=== PATIENT | female | born 1960 | race Caucasian/White ===

== ENCOUNTER 2016-10-27 21:16 | Emergency (ER) | payer MEDICAID ==
[2016-10-27 22:55] LABS: BASOPHILS 0.3 % (0-2); EOSINOPHILS 0.6 % (0-7); HEMATOCRIT 50.1 % (36.0-48.0); HEMOGLOBIN 17.2 g/dL (12-16); IMMATURE GRANULOCYTES 0.4 % (0-5); LYMPHOCYTES 7.2 % (15-50); MCH 29.7 pg (26.0-34.0); MCHC 34.3 g/dL (31.0-37.0); MCV 86.4 fL (80.0-100.0); MEAN PLATELET VOLUME 10.5 fL (7.4-10.4); MONOCYTES 5.3 % (2-11); NEUTROPHILS 86.2 % (40-80); PLATELET COUNT 234 10x3/uL (130-400); RDW 12.5 % (11.5-14.5); WBC 10.6 10x3/uL (4.8-10.8)
[2016-10-28 00:17] LABS: ALBUMIN 3.8 g/dL (3.4-5.0); ALKALINE PHOSPHATASE 85 U/L (46-116); ALT (SGPT) 61 U/L (10-68); BILIRUBIN - TOTAL 0.88 mg/dL (0.2-1.3); CALC OSMOLALITY 270 mosm/kg (275-300); CALCIUM 9.4 mg/dL (8.5-10.1); CARBON DIOXIDE 29.2 mmol/L (21.0-32.0); CHLORIDE - SERUM 100 mmol/L (98-107); CREATININE - SERUM 0.9 mg/dL (0.6-1.3); GLUCOSE 120 mg/dL (74-106); POTASSIUM - SERUM 5.4 mmol/L (3.5-5.1); PROTEIN - SERUM 7.8 g/dL (6.4-8.2); SODIUM 135 mmol/L (136-145); UREA NITROGEN 13 mg/dL (7-18); eGFR NON AFRICAN AMERICAN 69 mL/min (90-120)
[2016-10-28 00:30] LABS: CKMB 0.7 U/L (0.0-3.6); CREATINE KINASE 51 UL (21-215)
[2016-10-28 00:34] LABS: TROPONIN-I < 0.017 ng/mL (0.000-0.060)
== END 2016-10-28 01:33 | disposition home or self-care (01) ==
LOC: D.ER 21:16
PROVIDERS: Family Medicine
DX: I10 Essential (primary) hypertension (principal); J01.90 Acute sinusitis, unspecified; Z91.14 Patient's other noncompliance with medication regimen; F17.200 Nicotine dependence, unspecified, uncomplicated; R51 Headache

== ENCOUNTER 2017-11-02 21:12 | Emergency (ER) | payer MEDICAID ==
[~2017-11-02] VITALS: Ht 160 cm; Wt 90.9 kg
[2017-11-02 21:17] VITALS: Ht 160 cm; Wt 90.9 kg
[2017-11-02] MEDS ORDERED: VERAPAMIL HCL40 MG (21:18)
[2017-11-02] MEDS ORDERED: OMEPRAZOLE20 M1 PO (21:19)
[2017-11-02] MEDS ORDERED: CELEXA20 MG PO (21:19)
[2017-11-02] MEDS ORDERED: AMITRIPTYLINE H50 MG PO (21:19)
[2017-11-02] MEDS ORDERED: TRIGLIDE160 MG (21:19)
[2017-11-02] MEDS ORDERED: ZANAFLEX4 MG (21:20)
[2017-11-02] MEDS ORDERED: HYDROCHLOROTH12.5 M1 (21:20)
[2017-11-02] MEDS ORDERED: AMOXICILLIN500 M1 PO (22:22)
[2017-11-02] MEDS ORDERED: VOLTAREN75 MG PO (22:22)
[2017-11-02 23:10] VITALS: BP 184/108
== END 2017-11-02 23:10 | disposition home or self-care (01) ==
LOC: D.ER 21:12
DX: K04.7 Periapical abscess without sinus (principal); K08.89 Other specified disorders of teeth and supporting structures; I10 Essential (primary) hypertension

== ENCOUNTER 2017-12-05 12:39 | Emergency (ER) | payer MEDICAID ==
[~2017-12-05] VITALS: Ht 160 cm; Wt 101.8 kg
[~2017-12-05 12:39] MED LIST: AMITRIPTYLINE H50 MG PO; AMOXICILLIN500 M1 PO; CELEXA20 MG PO; HYDROCHLOROTH12.5 M1; OMEPRAZOLE20 M1 PO; TRIGLIDE160 MG; VERAPAMIL HCL40 MG; VOLTAREN75 MG PO; ZANAFLEX4 MG
[2017-12-05 13:23] VITALS: Ht 160 cm; Wt 101.8 kg
[2017-12-05 14:50] LABS: BASOPHILS 0.2 % (0-2); EOSINOPHILS 0.2 % (0-7); HEMOGLOBIN 13.5 g/dL (12-16); IMMATURE GRANULOCYTES 0.6 % (0-5); LYMPHOCYTES 10.9 % (15-50); MCH 28.9 pg (26.0-34.0); MCHC 33.8 g/dL (31.0-37.0); MCV 85.7 fL (80.0-100.0); MEAN PLATELET VOLUME 9.9 fL (7.4-10.4); MONOCYTES 8.6 % (2-11); NEUTROPHILS 79.5 % (40-80); RBC 4.67 10x6/uL (4.00-5.40); RDW 12.8 % (11.5-14.5); WBC 12.5 10x3/uL (4.8-10.8)
[2017-12-05 14:52] LABS: PLATELET COUNT 327 10x3/uL (130-400)
[2017-12-05 15:21] LABS: ALKALINE PHOSPHATASE 70 U/L (46-116); ALT (SGPT) 32 U/L (10-68); BILIRUBIN - TOTAL 0.26 mg/dL (0.2-1.3); CALC OSMOLALITY 275 mosm/kg (275-300); CALCIUM 9.3 mg/dL (8.5-10.1); CHLORIDE - SERUM 102 mmol/L (98-107); CREATININE - SERUM 1.1 mg/dL (0.6-1.3); GLUCOSE 129 mg/dL (74-106); POTASSIUM - SERUM 3.7 mmol/L (3.5-5.1); PROTEIN - SERUM 7.8 g/dL (6.4-8.2); SODIUM 137 mmol/L (136-145); UREA NITROGEN 12 mg/dL (7-18); eGFR NON AFRICAN AMERICAN 54 mL/min (90-120)
[2017-12-05 15:22] LABS: PRO BNP 117 pg/mL (0-125)
[2017-12-05 15:26] LABS: TROPONIN-I < 0.017 ng/mL (0.000-0.060)
[2017-12-05] MEDS ORDERED: ZESTRIL20 MG PO (17:36)
[2017-12-05 18:04] VITALS: BP 182/109
== END 2017-12-05 18:05 | disposition home or self-care (01) ==
LOC: D.ER 12:39
PROVIDERS: Emergency Medicine
DX: R06.00 Dyspnea, unspecified (principal); I10 Essential (primary) hypertension; G40.909 Epilepsy, unspecified, not intractable, without status epilepticus; K21.9 Gastro-esophageal reflux disease without esophagitis

== ENCOUNTER 2018-01-14 20:55 | Inpatient (IN) | payer MEDICARE ==
[~2018-01-14] VITALS: Ht 160 cm; Wt 99.8 kg
--- NOTE | ~2018-01-14 | HEMODYNAMI ---
PATIENT:ISMAEL HUDSON MEDICAL RECORD: [id number] : 60 LOCATION:[facility] [address] [facility]# [id number] ADMISSION DATE: 01/15/18 Generatedon:01/15/201811:26 Patient name: ISMAEL HUDSON Patient #: [id number] SSN: [id number] : 1960 Date of study: 01/15/2018 Page: Of Hemodynamic Procedure Report Patient Data Patient Demographics Procedure consent was obtained First Name: ISMAEL Gender: Female Last Name: TRISTAN : 1960 [facility] Initial: R Age: 57 year(s) Patient #: [id number] Race: SSN: [id number] Additional ID: [id number] Contact details Address: [address] [place] [address] State: [place] City: [place] Zip code: [address] Admission Admission Data Admission Date: 01/15/2018 Admission Time: 0:30 Room #: 2115 Lab Results Lab Result Date: 01/15/2018 Lab Result Time: 0:00 Biochemistry Name Units Result Min Max BUN mg/dl 13 --(--*-)-- 7 18 Creatinine mg/dl 1 --(--*-)-- 0.6 1.3 CBC Name Units Result Min Max Hemoglobin g/dl 12.6 -*(----)-- 13.5 17.5 Procedure Procedure Types Cath Procedure Diagnostic Procedure LHC LHC w/Coronaries Sedation Charges Moderate Sedation up to 30 minutes PCI Procedure Coronary Stent Coronary Stent Initial Procedure Description Procedure Date Procedure Date: 01/15/2018 Procedure Start Time: 11:01 Procedure End Time: 11:21 Procedure Staff Name Function Raul Barkley MD Performing Physician Daisy Lindquist RT Monitor Eloina Mittal RT Scrub Braxton Thomas RN Nurse Basim De Jesus RT Chief Service Dispatcher Procedure Data Cath Procedure Fluoroscopy Diagnostic fluoroscopy Total fluoroscopy Time: 5.6 time: 5.6 min min Diagnostic fluoroscopy Total fluoroscopy dose: 302 dose: 302 mGy mGy Contrast Material Contrast Material Type Amount (ml) Isovue 300 103 Entry Location Entry Primary Successful Side Size Upsize Upsize Entry Closure Junior ccessful Closure Location (Fr) 1 (Fr) 2 (Fr) Remarks Device Remarks Radial Right 6 Fr Mechanical TR artery Short Compression Estimated blood loss: 10 ml Diagnostic catheters Device Type Used For End Catheter Placement DIAGNOSTIC [place] 110cm 5 Procedure Fr catheter ([id number]) Procedure Complications No complications Procedure Medications Medication Administration Route Dosage 0.9% NaCl I.V. 100 ml/hr Oxygen etCO2 Nasal cannula 2 l/min Heparin Flush Bag added to field 2 bags (1000units/500ml NS) Lidocaine 2% added to field 20 Radial Cocktail added to field 1 syringe (Verapomil 2mg/Nitro 400mcg/Heparin 1500units) Versed I.V. 2 mg Fentanyl I.V. 100 mcg Radial Cocktail I.A. 1 syringe (Verapomil 2mg/Nitro 400mcg/Heparin 1500units) Heparin Bolus I.V. 96618 units Fentanyl I.V. 50 mcg Plavix P.O. 600 mg Hemodynamics Rest HGB: 12.6 (g/dl) Heart Rate: 66 (bpm) Pressure Samples Time Site Value (mmHg) Purpose Heart Use Rate(bpm) 11:05 LV 136/11,24 Snapshot 84 11:06 AO 124/87(101) Pullback 81 11:06 LV 134/10,21 Pullback 81 Gradients Valve Time Site 1 Site 2 Mean SEP/DFP Peak To Heart Use (mmHg) (sec/min) Peak Rate (mmHg) (bpm) Aortic 11:06 LV AO 15 7 10 81 134/10,21 124/87(101) Calculations Valve P-P Mean Valve Index Valve Source Name Gradient Area Flow (cm2) Aortic 10 15 10 15 Snapshots Pre Cath Intra NCS Post Cath Vital Signs Time Heart Resp SPO2 etCO2 NIBP (mmHg) Rhythm Pain Sedation Rate (ipm) (%) (mmHg) Status Level (bpm) 10:33:25 65 43 0 136/125(132) NSR 0 (11) 10(A) , No pain 10:37:35 66 14 95 10.5 134/98(121) NSR 0 (11) 10(A) , No pain 10:41:43 67 17 91 21.8 112/91(103) NSR 0 (11) 10(A) , No pain 10:45:51 68 17 92 16.5 123/82(102) NSR 0 (11) 10(A) , No pain 10:50:01 68 16 92 12.8 116/86(98) NSR 0 (11) 10(A) , No pain 10:54:07 68 14 95 9 126/85(101) NSR 0 (11) 10(A) , No pain 10:58:21 74 14 91 122/83(112) NSR 0 (11) 10(A) , No pain 11:02:29 71 14 92 104/69(101) NSR 0 (11) 10(A) , No pain 11:06:38 81 17 96 20.3 117/68(104) NSR 0 (11) 10(A) , No pain 11:10:50 78 12 93 17.3 113/77(102) NSR 0 (11) 10(A) , No pain 11:15:02 74 14 95 20.3 112/75(97) NSR 0 (11) 10(A) , No pain 11:19:10 75 16 93 21.8 102/80(99) NSR 0 (11) 10(A) , No pain Medications Time Medication Route Dose Verified Delivered Reason Not es Effectiveness by by 10:42:39 0.9% NaCl I.V. 100 Braxton Braxton Per physician ml/hr Martha Thomas RN RN 10:42:51 Oxygen etCO2 2 l/min Braxton Braxton Per physician Nasal Martha Thomas cannula RN RN 10:43:02 Heparin Flush added 2 bags Braxton Braxton used for Bag to Lorigan Lorigan procedure (1000units/500ml field LEE RN NS) 10:43:29 Lidocaine 2% added 20ml Braxton Braxton for local to vial Lorigan Lorigan anesthetic field LEE RN 10:43:49 Radial Cocktail added 1 Braxton Braxton used for (Verapomil to syringe Lorigan Lorigan procedure 2mg/Nitro field LEE RN 400mcg/Heparin 1500units) 10:46:54 Versed I.V. 2 mg Braxton Braxton for sedation Martha Thomas RN RN 10:47:03 Fentanyl I.V. 100 mcg Braxton Braxton for sedation Lorigan Lorigan RN RN 11:03:23 Radial Cocktail I.A. 1 Braxton Raul for (Verapomil syringe Martha Barkley MD vasodilation 2mg/Nitro RN 400mcg/Heparin 1500units) 11:13:24 Heparin Bolus I.V. 10,000 Braxton Braxton for units Martha Thomas anticoagulation RN RN 11:23:52 Fentanyl I.V. 50 mcg Braxton Braxton for sedation Martha Thomas RN RN 11:24:04 Plavix P.O. 600 mg Braxton Braxton for Martha Thomas antiplatelet RN RN therapy Procedure Log Time Note 10:18:26 Basim De Jesus RT(R) sent for patient. Start room use. 10:18:27 Time tracking: Regular hours (M-F 7:00 - 5:00) 10:18:32 Plan of Care:Hemodynamics will remain stable., Cardiac rhythm will remain stable., Comfort level will be maintained., Respiratory function will remain adequate., Patient/ family verbilizes understanding of procedure., Procedure tolerated without complication., Recovers from procedure without complications.. 10:19:17 Lab Result : Hemoglobin 12.6 g/dl 10:19:17 Lab Result : Creatinine 1 mg/dl 10:19:17 Lab Result : BUN 13 mg/dl 10:20:07 Informed consent obtained and on chart 10:26:53 Patient received from Med II to CCL 3 Alert and oriented. Tansferred to table in Supine position. 10:26:55 Warm blankets applied, and cici hugger turned on for patient comfort. 10:26:55 Correct patient and procedure confirmed by team. 10:26:56 ECG and BP/O2 sat monitors applied to patient. 10:32:18 Baseline sample Acquired. 10:32:18 Vital chart was started 10:32:22 Rhythm: sinus rhythm 10:32:24 Full Disclosure recording started 10:32:31 H&P Date Dictated: 01/15/2018 New H&P dictated by physician.. 10:32:32 Pre-procedure instructions explained to patient. 10:32:33 Pre-op teaching completed and patient verbalized understanding. 10:32:34 Family in waiting room. 10:32:35 Patient NPO since Midnight. 10:32:37 Is the patient allergic to Iodine/contrast media? No. 10:32:38 Was the patient premedicated? No 10:32:39 Is patient on blood thinner?No 10:32:40 Patient diabetic? No. 10:32:43 Previous problem with sedation/anesthesia? No ? 10:32:47 Snore? Yes 10:32:48 Sleep apnea? No 10:32:49 Deviated septum? No 10:32:50 Opens mouth fully? Yes 10:32:51 Sticks out tongue? Yes 10:32:53 Airway obstruction? No ? 10:32:55 Dentures? No ? 10:32:58 Pre procedure: right dorsailis pedis pulse 1+ Palpable, but thready & weak; easily obliterated 10:33:01 Pre procedure: left dorsailis pedis pulse 1+ Palpable, but thready & weak; easily obliterated 10:33:03 Patient pain scale 0/10 ?. 10:33:08 IV patent on arrival in left forearm with 0.9% NaCl at [facility]. 10:33:11 Lab results completed and on chart. 10:33:14 Right Radial & Right Groin area was prepped with chlora-prep and draped in sterile fashion 10:33:15 Alarms reviewed by R. N. 10:33:16 Sharps counted by scrub and verified by R.N. 10:42:39 0.9% NaCl 100 ml/hr I.V. was administered by Braxton Thomas RN; Per physician; 10:42:51 Oxygen 2 l/min etCO2 Nasal cannula was administered by Braxton Thomas RN; Per physician; 10:43:02 Heparin Flush Bag (1000units/500ml NS) 2 bags added to field was administered by Braxton Thomas RN; used for procedure; 10:43:29 Lidocaine 2% 20ml vial added to field was administered by Braxton Thomas RN; for local anesthetic; 10:43:49 Radial Cocktail (Verapomil 2mg/Nitro 400mcg/Heparin 1500units) 1 syringe added to field was administered by Braxton Thomas RN; used for procedure; 10:46:22 Physician arrived 10:46:26 --------ALL STOP TIME OUT------ 10:46:27 Final Timeout: patient, procedure, and site verified with staff and physician. All members of the team are in agreement. 10:46:33 Right Radial & Right Groin site verified by team. 10:46:37 Physical assessment completed. ASA score P 2 - A patient with mild systemic disease as per Raul Barkley MD. 10:46:45 Sedation plan: IV Moderate Sedation Medication:Versed, Fentanyl 10:46:54 Versed 2 mg I.V. was administered by Braxton Thomas RN; for sedation; 10:47:03 Fentanyl 100 mcg I.V. was administered by Braxton Thomas RN; for sedation; 10:47:38 Use device set Radial Dx or PCI 10:47:39 ACIST Syringe (20721) opened to sterile field. 10:47:40 Medline Cath Pack ([id number]) opened to sterile field. 10:47:40 Bag Decanter (2002S) opened to sterile field. 10:47:41 DIAGNOSTIC WIRE .035 260cm J wire (393082) opened to sterile field. 10:47:41 ACIST Hand Control (43992) opened to sterile field. 10:47:42 ACIST Manifold (26034) opened to sterile field. 10:47:42 Tegaderm 4 x 4 (1626W) opened to sterile field. 10:47:44 MBrace Wrist Support (184936209) opened to sterile field. 10:47:45 NEEDLE Cook 21G 4cm Radial (T67576) opened to sterile field. 10:47:49 SHEATH 6Fr Prelude Radial ([id number]) opened to sterile field. 10:59:40 Procedure started. 11:01:27 Local anesthetic to right radial artery with Lidocaine 2% by Raul Barkley MD.INITIAL ACCESS ONLY 11:01:39 A 6 Fr Short sheath was inserted into the Right Radial artery 11:03:23 Radial Cocktail (Verapomil 2mg/Nitro 400mcg/Heparin 1500units) 1 syringe I.A. was administered by Raul Barkley MD; for vasodilation; 11:04:31 A DIAGNOSTIC [place] 110cm 5 Fr catheter (786562) was advanced over the wire and used for Procedure. 11:05:26 LV angiography performed. 11:06:01 EF : 60 % 11:06:50 LCA angiography performed. 11:07:53 RCA angiography performed. 11:09:42 Catheter removed. 11:12:46 Proceeding to intervention. 11:13:02 6 Fr XBLAD 3.5 guide catheter was inserted over the wire 11:13:24 Heparin Bolus 10,000 units I.V. was administered by Braxton Thomas RN; for anticoagulation; 11:14:12 BMW wire advanced. 11:14:22 GUIDE 6FR XBLAD 3.5 catheter (99759468) opened to sterile field. 11:14:23 BMW 300cm Reader 2 J wire (3291842F) opened to sterile field. 11:14:24 INFLATOR Merit BasixCompak (IL6450) opened to sterile field. 11:14:25 TUBING High Pressure Extension Tubing (Filippo) (PO3651B) opened to sterile field. 11:16:51 Wire advanced across lesion. 11:19:07 Place stent Inflation Number: 1 A INTEGRITY OTW 3.0 X 22 stent ([id number]) was prepped and advanced across the Mid LAD. The stent was deployed at 12 DARCI for 0:10 (min:sec). 11:19:27 TR BAND Standard ([id number]) opened to sterile field. 11:19:43 Sheath removed intact; hemostasis achieved with Mechanical Compression to the Right Radial artery. 11:19:55 Procedure ended.(Physican Out) 11:20:15 Fluoroscopy time 05.60 minutes. 11:20:22 Fluoroscopy dose: 302 mGy 11:20:22 Flurop Dose total: 302 11:20:26 Contrast amount:Isovue 300 103ml. 11:20:28 Sharps counted by scrub and verified by R.N. 11:20:31 TR band inflated with 11cc of air. 11:20:33 Insertion/operative site no bleeding no hematoma. 11:20:35 Post Procedure Pulses reassessed and unchanged 11:20:39 Post-procedure physical assessment completed. ASA score P 2 - A patient with mild systemic disease as per Raul Barkley MD. 11:20:42 Post procedure rhythm: unchanged. 11:20:45 Estimated blood loss: 10 ml 11:20:47 Post procedure instruction explained to patient.Patient verbalizes understanding. 11:21:02 Procedure type changed to Cath procedure, Diagnostic procedure, LHC, LHC w/Coronaries, Sedation Charges, Moderate Sedation up to 30 minutes, PCI procedure, Coronary Stent, Coronary Stent Initial 11:21:04 Procedure and supply charges have been captured, reviewed, submitted and are correct. 11:21:38 Procedure Complication : No complications 11:21:41 Vital chart was stopped 11:21:41 See physician's report for complete and final results. 11:21:44 Report given to [facility]. 11:21:47 Patient transfered to [facility] with Bed. 11:21:49 Procedure ended. 11:21:49 Full Disclosure recording stopped 11:21:53 End room use (Document Last) 11:22:04 ACC-PCI Only Patient was given prescriptions, or instructed by Raul Barkley MD to start/continue the following medications upon discharge: Plavix 11:23:52 Fentanyl 50 mcg I.V. was administered by Braxton Thomas RN; for sedation; 11:24:04 Plavix 600 mg P.O. was administered by Braxton Thomas RN; for antiplatelet therapy; Intervention Summary Intervention Notes Time ActionType Lesion and Equipment Action# Pressure Duration Attributes Used 11:19:07 Place stent Mid LAD INTEGRITY 1 12 00:10 OTW 3.0 X 22 stent ([id number]) Device Usage Item Name Manufacture Quantity Catalog Number Hospital Part Current M inimal Lot# / Charge Number Stock Stock Serial# Code ACIST Syringe Acist 1 30416 367279 742029 496973 2 0 (50710) Medical Systems Inc Medline Cath Cardinal 1 [id number] 356555 72686 877720 5 Pack Health ([id number]) Bag Decanter Microtek 1 2001S 656504 38524 904728 5 (2001S) Medical Inc. DIAGNOSTIC WIRE St [place] 1 463407 381938 536183 327889 3 0 .035 260cm J wire (296878) ACIST Hand Acist 1 31700 998901 444438 608436 5 Control (29389) Medical [employer] Inc ACIST Manifold Acist 1 41302 239292 969073 793121 5 (80890) Medical Systems Inc Tegaderm 4 x 4 3M 1 1626W 442519 672678 093065 5 (1626W) MBrace Wrist Advanced 1 140-0250-00 383611 53907 310330 5 Support Vascular ([id number]) Dynamics NEEDLE Cook 21G Cook Medical 1 V66966 404133 143933 588660 5 4cm Radial (K31372) SHEATH 6Fr Merit 1 [id number] 410910 107581 007578 5 Prelude Radial Medical ([id number]) DIAGNOSTIC Terumo 1 57-5571 725453 831989 470966 5 [place] 110cm 5 Fr catheter (593409) GUIDE 6FR XBLAD Cardinal 1 [id number] 140431 903745 293451 1 0 3.5 catheter Health (45210091) BMW 300cm Hickman 1 [id number] 092311 570243 270965 5 Reader 2 J Vascular wire (1188539O) INFLATOR Merit Merit 1 SB2262 398486 243086 832843 1 5 [employer] Medical (BG8433) TUBING High Merit 1 [id number] 260659 57278 353825 1 0 Pressure Medical Extension Tubing (Barkley) (EK8426P) INTEGRITY OTW Medtronic 1 [id number] 455496 132734 5 [id number] 3.0 X 22 stent ([id number]) TR BAND Terumo 1 [id number] 253098 342285 225700 4 0 Standard ([id number]) Signature Audit [place] Stage Time Signature Unsigned Intra-Procedure 01/15/2018 Daisy Lindquist 11:26:54 AM RT(R) Signatures Monitor : Daisy Lindquist Signature : RT Date : Time : [place] [id number] [facility] [place] [address]
[~2018-01-14 20:55] MED LIST changes: +CALAN SR120 MG PO; -HYDROCHLOROTH12.5 M1; +HYDROCHLOROTH12.5 M1 PO; -TRIGLIDE160 MG; +TRIGLIDE160 MG PO; -VERAPAMIL HCL40 MG; +ZESTRIL20 MG PO
[2018-01-14 21:41] LABS: BASOPHILS 0.8 % (0-2); EOSINOPHILS 4.9 % (0-7); HEMATOCRIT 40.1 % (36.0-48.0); HEMOGLOBIN 13.5 g/dL (12-16); IMMATURE GRANULOCYTES 0.6 % (0-5); LYMPHOCYTES 27.9 % (15-50); MCHC 33.7 g/dL (31.0-37.0); MCV 86.1 fL (80.0-100.0); MEAN PLATELET VOLUME 9.4 fL (7.4-10.4); NEUTROPHILS 59.8 % (40-80); PLATELET COUNT 306 10x3/uL (130-400); RBC 4.66 10x6/uL (4.00-5.40); RDW 12.3 % (11.5-14.5); WBC 5.3 10x3/uL (4.8-10.8)
[2018-01-14 21:55] LABS: APTT 27.4 SECONDS (22.8-39.4); INR 0.96 (0.85-1.17); PROTIME 12.4 SECONDS (11.6-15.0)
[2018-01-14 21:56] LABS: D-DIMER-QUANTITATIVE 0.48 ug/mLFEU (0.20-0.54)
[2018-01-14 22:03] LABS: ALBUMIN 3.7 g/dL (3.4-5.0); ALKALINE PHOSPHATASE 58 U/L (46-116); ALT (SGPT) 44 U/L (10-68); BILIRUBIN - TOTAL 0.22 mg/dL (0.2-1.3); CALC OSMOLALITY 277 mosm/kg (275-300); CALCIUM 9.6 mg/dL (8.5-10.1); CARBON DIOXIDE 27.2 mmol/L (21.0-32.0); CHLORIDE - SERUM 104 mmol/L (98-107); CREATININE - SERUM 1.2 mg/dL (0.6-1.3); GLUCOSE 109 mg/dL (74-106); POTASSIUM - SERUM 4.4 mmol/L (3.5-5.1); PROTEIN - SERUM 7.8 g/dL (6.4-8.2); SODIUM 139 mmol/L (136-145); UREA NITROGEN 11 mg/dL (7-18); eGFR NON AFRICAN AMERICAN 49 mL/min (90-120)
[2018-01-14 22:20] LABS: CREATINE KINASE 140 UL (21-215)
[2018-01-14 22:29] LABS: TROPONIN-I 1.762 ng/mL (0.000-0.060)
[2018-01-14 23:00] VITALS: BP 178/103
[2018-01-14 23:30] VITALS: BP 171/97
[2018-01-15] VITALS: BP 158/101
[2018-01-15 00:30] VITALS: BP 178/100
[2018-01-15] MEDS ORDERED: ULTRAM50 MG PO (01:48)
[2018-01-15] MEDS ORDERED: AUGMENTIN 875-11 TAB PO (01:51)
[2018-01-15 02:10] VITALS: BP 158/101; BMI 39.0
[2018-01-15 04:00] VITALS: BP 169/89
[2018-01-15 04:50] LABS: CKMB 7.1 U/L (0.0-3.6); CREATINE KINASE 127 UL (21-215)
[2018-01-15 04:56] LABS: TROPONIN-I 1.515 ng/mL (0.000-0.060)
[2018-01-15 08:11] LABS: BASOPHILS 0.6 % (0-2); EOSINOPHILS 4.3 % (0-7); HEMATOCRIT 38.1 % (36.0-48.0); HEMOGLOBIN 12.6 g/dL (12-16); IMMATURE GRANULOCYTES 0.4 % (0-5); LYMPHOCYTES 30.2 % (15-50); MCH 28.4 pg (26.0-34.0); MCHC 33.1 g/dL (31.0-37.0); MONOCYTES 7.8 % (2-11); NEUTROPHILS 56.7 % (40-80); PLATELET COUNT 319 10x3/uL (130-400); RBC 4.43 10x6/uL (4.00-5.40); RDW 12.4 % (11.5-14.5); WBC 5.4 10x3/uL (4.8-10.8)
[2018-01-15 08:14] LABS: ANION GAP 17.3 mmol/L (8-16); CALCIUM 9.3 mg/dL (8.5-10.1); CARBON DIOXIDE 22.1 mmol/L (21.0-32.0); POTASSIUM - SERUM 3.4 mmol/L (3.5-5.1)
[2018-01-15 09:17] VITALS: BP 131/85
[2018-01-15 10:56] LABS: CKMB 5.3 U/L (0.0-3.6); CREATINE KINASE 114 UL (21-215); TROPONIN-I 0.725 ng/mL (0.000-0.060)
[2018-01-15 13:11] VITALS: Ht 160 cm; Wt 99.8 kg
[2018-01-15] MEDS ORDERED: PLAVIX75 MG PO (15:57)
== END 2018-01-15 17:10 | disposition home or self-care (01) | DRG 249 ==
LOC: D.ER 20:55 → D.M2 01-15 00:30
PROVIDERS: Family Medicine; Internal Medicine Cardiovascular Disease
PROC: B2111ZZ Fluoroscopy of Multiple Coronary Arteries using Low Osmolar Contrast (ICD-10-PCS; 2018-01-15)
PROC: B2151ZZ Fluoroscopy of Left Heart using Low Osmolar Contrast (ICD-10-PCS; 2018-01-15)
PROC: 02703DZ Dilation of Coronary Artery, One Artery with Intraluminal Device, Percutaneous Approach (ICD-10-PCS; principal; 2018-01-15 11:30)
PROC: 4A023N7 Measurement of Cardiac Sampling and Pressure, Left Heart, Percutaneous Approach (ICD-10-PCS; 2018-01-15 11:30)
DX: I21.4 Non-ST elevation (NSTEMI) myocardial infarction (principal); I25.10 Atherosclerotic heart disease of native coronary artery without angina pectoris; I10 Essential (primary) hypertension; G62.9 Polyneuropathy, unspecified

== ENCOUNTER → 2018-05-19 18:11 | Outpatient (CLI) | payer MEDICARE ==
[2018-01-15 13:11] VITALS: BMI 38.9
[~2018-05-19 18:11] MED LIST changes: +AUGMENTIN 875-11 TAB PO; +PLAVIX75 MG PO; +ULTRAM50 MG PO
[2018-05-19 18:40] LABS: CHOL - HDL RATIO 2.8 ratio (2.3-4.1); LDL-HDL RATIO 1.4 ratio (1.5-3.5)
== END | disposition home or self-care (01) ==
LOC: D.LABREF 18:11
PROVIDERS: Nurse Practitioner Adult Health
DX: E78.5 Hyperlipidemia, unspecified (principal)

== ENCOUNTER 2018-12-23 06:15 | Day surgery (SDC) | payer MEDICARE ==
[2018-12-22 11:33] LABS: BASOPHILS 0.6 % (0-2); EOSINOPHILS 7.2 % (0-7); HEMATOCRIT 40.1 % (36.0-48.0); HEMOGLOBIN 13.5 g/dL (12-16); IMMATURE GRANULOCYTES 0.2 % (0-5); LYMPHOCYTES 24.4 % (15-50); MCH 28.5 pg (26.0-34.0); MCHC 33.7 g/dL (31.0-37.0); MCV 84.6 fL (80.0-100.0); MEAN PLATELET VOLUME 9.9 fL (7.4-10.4); MONOCYTES 9.2 % (2-11); NEUTROPHILS 58.4 % (40-80); RBC 4.74 10x6/uL (4.00-5.40); RDW 12.7 % (11.5-14.5); WBC 4.9 10x3/uL (4.8-10.8)
[2018-12-22 11:46] LABS: CALCIUM 9.2 mg/dL (8.5-10.1); CARBON DIOXIDE 28.6 mmol/L (21.0-32.0); POTASSIUM - SERUM 3.6 mmol/L (3.5-5.1)
[2018-12-22 11:48] LABS: PLATELET COUNT 247 10x3/uL (130-400)
[~2018-12-23] VITALS: Ht 160 cm; Wt 90.7 kg
[~2018-12-23 06:15] MED LIST changes: +FLUTICASONE PRO16 GM NASAL; +JANUVIA100 MG PO; +LIPITOR10 MG PO; +TOPROL XL25 MG PO; -ZANAFLEX4 MG; +ZANAFLEX4 MG PO
[2018-12-23 06:57] VITALS: BP 104/46; Ht 160 cm; Wt 90.7 kg
--- NOTE | 2018-12-23 11:11 | NUR ---
1100-REC'D FROM RR. AWAKE AND ALERT,DENIES PAIN.VSS. DRESSING TO RIGHT HAND CDI. VSS. CL IN EASY REACH,DAUGHTER AT BEDSIDE.
--- NOTE | 2018-12-23 11:12 | NUR ---
1110-FULL LIQUID TRAY TO ROOM.
--- NOTE | 2018-12-23 12:10 | NUR ---
1205-DISCHARGE CRITERIA MET. REMOVED IV WITH CATH INTACT,DISPOSED INTO SHARPS CONTAINER. VSS. REVIEWED DISCHARGE CRITERIA WITH PT AND FAMILY AT [facility]. VERBALIZED UNDERSTANDING WITHOUT QUESTIONS OR CONCERNS. ESCORTED OUT VIA W/C WITH FAMILY MEMBER TO DRIVE HOME.
== END 2018-12-23 12:05 | disposition home or self-care (01) ==
LOC: D.OPS 06:15 → D.PAN 08:15 → D.OPS 12:05
PROVIDERS: ATTEND Orthopaedic Surgery
DX: M19.041 Primary osteoarthritis, right hand (principal)

== ENCOUNTER 2019-10-31 20:38 | Emergency (ER) | payer MEDICARE ==
[~2019-10-31] VITALS: Ht 160 cm; Wt 113.6 kg
[2019-10-31] MEDS ORDERED: HYDROCODON-ACE1 EAC7 PO (21:04)
[2019-10-31 21:08] VITALS: Ht 160 cm; Wt 113.6 kg
[2019-10-31 21:17] VITALS: BP 147/95
== END 2019-10-31 21:17 | disposition home or self-care (01) ==
LOC: D.ER 20:38
DX: K08.89 Other specified disorders of teeth and supporting structures (principal); E11.40 Type 2 diabetes mellitus with diabetic neuropathy, unspecified; I10 Essential (primary) hypertension; I25.2 Old myocardial infarction; K21.9 Gastro-esophageal reflux disease without esophagitis; Z79.84 Long term (current) use of oral hypoglycemic drugs